=== PATIENT | female | born 1960 | race Caucasian/White ===

== ENCOUNTER 2023-01-24 08:58 | Observation (INO) | payer MEDICARE, MEDICAID, SELFPAY ==
[2023-01-24] VITALS (11 sets, daily range): BP systolic 127–157; BP diastolic 79–95; PULSE 59–77; RESP 13–20; TEMP 36.2–36.9; O2SAT 97–99; BMI 27.4; BMI 24.4
--- NOTE | 2023-01-24 | EEG_ITS ---
This is a 16 channel EEG with an EKG lead. The patient is reported awake during the tracing. Background EEG rhythm is lower amplitude fast with no obvious asymmetry or paroxysmal tendency. Photic stimulation does not produce any significant abnormality. Hyperventilation is not performed. Cardiac lead does not reveal any significant abnormality. No sharp wave spikes or paroxysmal tendency noted. IMPRESSION: Unremarkable EEG. MD JOVAN De Jesus/TOM / [id number]
--- NOTE | 2023-01-24 09:46 | ED.GENADULT ---
HPI - General Adult General Chief complaint: Fall Stated complaint: fall Time Seen by Provider: 01/24/23 09:12 History of Present Illness HPI narrative: Patient is a 62-year-old female presented today with having episodes of syncope. Patient feels dizzy. Mona like a spinning sensation. Subsequently found herself on the ground. She might have passed out for an hour. Patient complaining of pain to the right foot. There is no fever no chills. No chest pain or diaphoresis. No abdominal pain. No bloody stool. No history of being on blood thinners. Positive history of anxiety. Positive history of arthritis. Related Data Allergies Allergy/AdvReac Type Severity Reaction Status Date / Time aspirin [ASPIRIN] Allergy Unknown SOB, Verified 01/24/23 10:56 URINARY RETENTION SEASONAL ALLERGIES Allergy Unknown NAUSEA & Uncoded 04/07/20 15:36 VOMITING, ITCHINESS Review of Systems Review of Systems: No fever no chills no chest pain Yes all other systems are reviewed and are negative PMFSH Past Medical History Attestation statement: The following information was validated with the patient. Social History Social History Smoked in Last 30 Days: No Use of substances other than those prescribed or required for medical reasons: No Advance Directives: No Physical Exam ED Vital Signs: Vital Signs - 24 hr 01/24/23 09:03 01/24/23 09:17 01/24/23 10:23 Temperature 98.1 F 98.3 F Pulse Rate 77 74 71 Respiratory Rate 20 16 Blood Pressure 129/89 127/88 136/90 H Pulse Oximetry 98 98 Oxygen Delivery Method Room Air 01/24/23 10:28 01/24/23 10:29 01/24/23 10:31 Temperature 97.9 F Pulse Rate 67 64 64 Respiratory Rate 14 Blood Pressure 134/79 139/88 134/79 Pulse Oximetry 98 Oxygen Delivery Method Room Air 01/24/23 11:36 01/24/23 13:45 Temperature 97.5 F 97.7 F Pulse Rate 67 66 Respiratory Rate 14 13 Blood Pressure 157/95 H 136/86 Pulse Oximetry 99 99 Oxygen Delivery Method Room Air Room Air BMI result Body Mass Index 27.4 Appearance: Alert. Oriented X3. No acute distress. Eyes: Pupils equal, round and reactive to light. ENT: Pharynx normal. Neck: Normal inspection. Neck supple. No lymph nodes noted. No crepitus CVS: Normal heart rate and rhythm. Pulses normal. Normal S1 and S2 Respiratory: No respiratory distress. Breath sounds normal. No Wheezing. No rales Abdomen: Soft and nontender. No rigidity. No distention. good BS x4 Skin: Skin warm and dry. Normal skin color. Normal skin turgor. Extremities: No lower extremity edema. Neurovascular intact to all extremities. No Lacerations. No Rash Neuro: Oriented X 3. No motor deficit. No sensory deficit. Moving all extermities. No slurred speech Medications Administered Discontinued Medications Generic Name Dose Route Start Last Admin Trade Name Freq PRN Reason Stop Dose Admin Diphtheria/Tetanus/Acell Pertussis 0.5 ml 01/24/23 09:31 01/24/23 10:11 Diphth,Pertus(Acell),Tet Adult 0.5 Ml Syringe IM 01/24/23 09:32 0.5 ml .ONCE ONE Administration Sodium Chloride 1,000 mls @ 999 mls/hr 01/24/23 09:45 01/24/23 10:57 Ns IV 01/24/23 10:45 Infused .Q1H1M MAUREEN Infusion Medical Decision Making Medical Decision Making MDM Narrative: Patient is a 62-year-old female had a syncopal episode last night. Patient was found on the floor question how long she was down on the ground. Has a small lack to the top of her foot. Patient stated that she had syncopal episodes in the past. What is different is that she is not sure how long she has been down. She still feels somewhat dizzy on arrival. She is not orthostatic. CT scan of the head was grossly negative. X-ray of the foot was grossly negative. My interpretation of patient's EKG showed a sinus rhythm heart rate is 70 CA QRS QT within normal limits is no acute ST segment elevation. Patient's chest x-ray showed no focal infiltrate. Her CPK was 66 there is no evidence for rhabdo. Patient tox screen is grossly negative. Given patient's age [age] years old positive syncopal episode for prolonged period of time will admit patient for observation overnight. Case was consulted by the hospitalist team. Differential Diagnosis Differential Diagnoses: The differential diagnosis associated with the presentation includes Syncope, arrhythmia, infection, rhabdo, urinary tract infection Admission/Observation Consideration of admission/observation: Escalation of care including admission/observation considered Consult Healthcare Provider Management of the patient was discussed with: Hospitalist Lab Data MDM Lab Attestation statement: I reviewed the patient's lab results. 01/24/23 09:47 01/24/23 09:47 Labs: Lab Results 01/24/23 01/24/23 01/24/23 Range/Units 09:40 09:47 09:47 WBC 4.3 L (4.8-10.8) X10*3/uL RBC 4.70 (4.20-5.50) X10*6/uL Hgb 14.6 (12.0-16.0) g/dl Hct 43.6 (37.0-47.0) % MCV 92.8 (80.0-98.0) fL MCH 31.1 (27.0-33.0) pg MCHC 33.5 (31.0-35.0) g/dl RDW 12.6 (11.0-16.0) % Plt Count 110 L (160-400) X10*3/uL MPV 12.0 (9.4-12.3) fL Immature Gran % (Auto) 0.2 (0.0-0.4) % Neut % (Auto) 60.2 (45-73) % Lymph % (Auto) 29.5 (20-40) % [place] % (Auto) 6.6 (2-11) % Eos % (Auto) 2.3 (0-4) % Baso % (Auto) 1.2 (0-2) % Lymph # (Auto) 1.3 (1.2-4.9) X10*3/uL [place] # (Auto) 0.3 (0.1-1.2) X10*3/uL Eos # (Auto) 0.1 (0.0-0.4) X10*3/uL Baso # (Auto) 0.1 (0.0-0.2) X10*3/uL Abs Immat Gran (auto) 0.01 (0.00-0.03) X10*3/uL Absolute Neuts (auto) 2.6 (2.0-8.3) x10*3/uL Absolute Nucleated RBC 0.000 (0.0-0.012) X10*3/uL Nucleated RBC % (auto) 0.0 (0.0-0.2) /100WBC Sodium 142 (135-145) mmol/L Potassium 4.2 (3.3-5.1) mmol/L Chloride 109 H (96-108) mmol/L Carbon Dioxide 24 (22-29) mmol/L Anion Gap 13 (12-20) BUN 20 H (9-16) mg/dL Creatinine 0.80 (0.5-1.4) mg/dL Estim Creat Clear Calc 65.0 Estimated GFR > 60 POC Glucose 85 (60-115) mg/dL Random Glucose 90 (60-115) mg/dL Calcium 9.6 (8.4-10.2) mg/dL Magnesium 2.0 (1.6-2.6) mg/dL Total Bilirubin 0.8 (0.0-1.0) mg/dL Direct Bilirubin 0.2 (0.0-0.5) mg/dL AST 19 (5-31) U/L ALT 10 (0-31) U/L Alkaline Phosphatase 53 (39-117) U/L Total Creatine Kinase 66 (26-140) U/L Troponin I High Sens (<3.5-17.0) ng/L Total Protein 6.9 (6.5-8.0) g/dL Albumin 4.1 (3.5-5.0) g/dL Urine Color Urine Appearance Urine pH (5.0-9.0) Ur Specific [place] (1.005-1.025) Urine Protein (Neg-Trace) mg/dL Urine Glucose (UA) (Negative) mg/dL Urine Ketones (Negative) mg/dL Urine Blood (Negative) Urine Nitrite (Negative) Ur Leukocyte Esterase (Negative) Urine RBC (0-2) /HPF Urine WBC (0-5) /HPF Ur Squamous Epith Cells (0-2) /HPF Urine Bacteria (None Seen) Hyaline Casts (0-2) /LPF Urine Opiates Screen (Not Detect) Urine Fentanyl Screen (Not Detect) Ur Barbiturates Screen (Not Detect) Ur Phencyclidine Scrn (Not Detect) Ur Amphetamines Screen (Not Detect) U Benzodiazepines Scrn (Not Detect) Urine Cocaine Screen (Not Detect) U Marijuana (THC) Screen (Not Detect) 01/24/23 01/24/2323 Range/Units 09:47 10:25 10:25 WBC (4.8-10.8) X10*3/uL RBC (4.20-5.50) X10*6/uL Hgb (12.0-16.0) g/dl Hct (37.0-47.0) % MCV (80.0-98.0) fL MCH (27.0-33.0) pg MCHC (31.0-35.0) g/dl RDW (11.0-16.0) % Plt Count (160-400) X10*3/uL MPV (9.4-12.3) fL Immature Gran % (Auto) (0.0-0.4) % Neut % (Auto) (45-73) % Lymph % (Auto) (20-40) % [place] % (Auto) (2-11) % Eos % (Auto) (0-4) % Baso % (Auto) (0-2) % Lymph # (Auto) (1.2-4.9) X10*3/uL [place] # (Auto) (0.1-1.2) X10*3/uL Eos # (Auto) (0.0-0.4) X10*3/uL Baso # (Auto) (0.0-0.2) X10*3/uL Abs Immat Gran (auto) (0.00-0.03) X10*3/uL Absolute Neuts (auto) (2.0-8.3) x10*3/uL Absolute Nucleated RBC (0.0-0.012) X10*3/uL Nucleated RBC % (auto) (0.0-0.2) /100WBC Sodium (135-145) mmol/L Potassium (3.3-5.1) mmol/L Chloride (96-108) mmol/L Carbon Dioxide (22-29) mmol/L Anion Gap (12-20) BUN (9-16) mg/dL Creatinine (0.5-1.4) mg/dL Estim Creat Clear Calc Estimated GFR POC Glucose (60-115) mg/dL Random Glucose (60-115) mg/dL Calcium (8.4-10.2) mg/dL Magnesium (1.6-2.6) mg/dL Total Bilirubin (0.0-1.0) mg/dL Direct Bilirubin (0.0-0.5) mg/dL AST (5-31) U/L ALT (0-31) U/L Alkaline Phosphatase (39-117) U/L Total Creatine Kinase (26-140) U/L Troponin I High Sens < 2.7 (<3.5-17.0) ng/L Total Protein (6.5-8.0) g/dL Albumin (3.5-5.0) g/dL Urine Color Yellow Urine Appearance Clear Urine pH 5.5 (5.0-9.0) Ur Specific [place] 1.020 (1.005-1.025) Urine Protein Negative (Neg-Trace) mg/dL Urine Glucose (UA) Negative (Negative) mg/dL Urine Ketones 15 (Negative) mg/dL Urine Blood Negative (Negative) Urine Nitrite Negative (Negative) Ur Leukocyte Esterase Trace H (Negative) Urine RBC 0-2 (0-2) /HPF Urine WBC 0-5 (0-5) /HPF Ur Squamous Epith Cells 3-5 (0-2) /HPF Urine Bacteria None Seen (None Seen) Hyaline Casts 0-2 (0-2) /LPF Urine Opiates Screen Not Detected (Not Detect) Urine Fentanyl Screen Not Detected (Not Detect) Ur Barbiturates Screen Not Detected (Not Detect) Ur Phencyclidine Scrn Not Detected (Not Detect) Ur Amphetamines Screen Not Detected (Not Detect) U Benzodiazepines Scrn Not Detected (Not Detect) Urine Cocaine Screen Not Detected (Not Detect) U Marijuana (THC) Screen Not Detected (Not Detect) Independent Interpretation I performed an independent interpretation of an: EKG and CT Scan Interpretation: Sinus heart rate is 70 CA QRS QT within normal limits is no acute ST segment elevation noted. CT scan of the head was grossly negative Radiology Impression Discussion of test interpretation with radiology: I have reviewed the radiologist's reading. External Record Review Patient has no significant record at [facility] Discharge Plan Discharge Clinical Impression: Syncope Patient Disposition: Admitted As Inpatient
--- NOTE | 2023-01-24 09:55 | PC.NURSE ---
pt axo to self, poor historian. PERRLA, smile symmetrical, ?slight droop on R. side. bilateral weakness BUE, R. leg weak which pt states has been chronic x years, appears to be fatigued, skin warm and dry; color appropriate to ethnicity. pt reports her shower is on 2nd floor of her house, fell down stairs approx. midnight after feeling dizzy; was on floor overnight, unclear duration. pt has abrasion/pain on top of R. foot; denies other injuries. NSR on monitor, sats 98% on RA, respirations even and unlabored. iv established, labs drawn, fluids infusing. in CT at this time.
--- NOTE | 2023-01-24 11:15 | PC.NURSE ---
Pt is alert but remains confused with some questions asked, unable to recall sons name todays date. Neuros unchanged since arrival. This RN inquired about pts living situation as pt lives alone and actively driving. Pt sons live in [place]
--- NOTE | 2023-01-24 14:40 | PM.IMHP ---
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 presented with fall and report of loss of conciousness. patient has multiple vague complaints, bilateral lower extremity numbness for years, diffuse weakness, episodic dizziness. she reports feeling dizzy and falling downstairs on night ptp, she states she lost concioussness for about 1-2 hours, denies incontinence, reports one previous episode several years ago. in ED cth, labs, ekg unremarkable. Review of Systems Review of Systems: Yes all other systems are reviewed and are negative [facility] Medical History (Updated 01/24/23 @ 14:44 by Salas Amor MD) Hepatitis B Social History Smoked in Last 30 Days: No Use of substances other than those prescribed or required for medical reasons: No Advance Directives: No Meds Allergies Allergy/AdvReac Type Severity Reaction Status Date / Time aspirin [ASPIRIN] Allergy Unknown SOB, Verified 01/24/23 10:56 URINARY RETENTION SEASONAL ALLERGIES Allergy Unknown NAUSEA & Uncoded 04/07/20 15:36 VOMITING, ITCHINESS Active Medications: Current Medications Pharmacy Consult (Consult Rx Perform Med Rec) 1 each MISCELLANE ONCE PRN PRN Reason: Consult order Home Medications Medication Instructions Recorded Confirmed Last Taken Type acetaminophen 325 mg tablet 650 mg PO Q12H PRN Pain 01/24/23 01/24/23 1 Week Ago History (Tylenol) ~01/17/23 fluoxetine 40 mg capsule 40 mg PO DAILY 01/24/23 01/24/23 1 Week Ago History ~01/17/23 Physical Exam Vital Signs and Narrative: Vital Signs: Last Vital Signs Temp 97.7 F 01/24/23 13:45 Pulse 66 01/24/23 13:45 Resp 13 01/24/23 13:45 BP 136/86 01/24/23 13:45 Pulse Ox 99 01/24/23 13:45 O2 Del Method Room Air 01/24/23 13:45 BMI result Body Mass Index 27.4 General: AO X 3, no acute distress Resp: CTA bilateral, no accessory muscles used CVS: S1,S2,RRR GI: soft, non tender, non distended Neuro: unreliable, ?lack of effort on exam Results Labs 01/24/23 09:47 01/24/23 09:47 Labs: Laboratory Results - last 24 hr 01/24/23 01/24/23 01/24/23 09:40 09:47 09:47 MCV 92.8 MCH 31.1 MCHC 33.5 RDW 12.6 Plt Count 110 L MPV 12.0 Immature Gran % (Auto) 0.2 Neut % (Auto) 60.2 Lymph % (Auto) 29.5 [place] % (Auto) 6.6 Eos % (Auto) 2.3 Baso % (Auto) 1.2 Lymph # (Auto) 1.3 [place] # (Auto) 0.3 Eos # (Auto) 0.1 Baso # (Auto) 0.1 Abs Immat Gran (auto) 0.01 Absolute Neuts (auto) 2.6 Absolute Nucleated RBC 0.000 Nucleated RBC % (auto) 0.0 Anion Gap 13 Estim Creat Clear Calc 65.0 Estimated GFR > 60 POC Glucose 85 Random Glucose 90 Calcium 9.6 Magnesium 2.0 Total Bilirubin 0.8 Direct Bilirubin 0.2 AST 19 ALT 10 Alkaline Phosphatase 53 Total Creatine Kinase 66 Troponin I High Sens Total Protein 6.9 Albumin 4.1 Urine Color Urine Appearance Urine pH Ur Specific [place] Urine Protein Urine Glucose (UA) Urine Ketones Urine Blood Urine Nitrite Ur Leukocyte Esterase Urine RBC Urine WBC Ur Squamous Epith Cells Urine Bacteria Hyaline Casts Urine Opiates Screen Urine Fentanyl Screen Ur Barbiturates Screen Ur Phencyclidine Scrn Ur Amphetamines Screen U Benzodiazepines Scrn Urine Cocaine Screen U Marijuana (THC) Screen 01/24/23 01/24/23 01/24/23 09:47 10:25 10:25 MCV MCH MCHC RDW Plt Count MPV Immature Gran % (Auto) Neut % (Auto) Lymph % (Auto) [place] % (Auto) Eos % (Auto) Baso % (Auto) Lymph # (Auto) [place] # (Auto) Eos # (Auto) Baso # (Auto) Abs Immat Gran (auto) Absolute Neuts (auto) Absolute Nucleated RBC Nucleated RBC % (auto) Anion Gap Estim Creat Clear Calc Estimated GFR POC Glucose Random Glucose Calcium Magnesium Total Bilirubin Direct Bilirubin AST ALT Alkaline Phosphatase Total Creatine Kinase Troponin I High Sens < 2.7 Total Protein Albumin Urine Color Yellow Urine Appearance Clear Urine pH 5.5 Ur Specific [place] 1.020 Urine Protein Negative Urine Glucose (UA) Negative Urine Ketones 15 Urine Blood Negative Urine Nitrite Negative Ur Leukocyte Esterase Trace H Urine RBC 0-2 Urine WBC 0-5 Ur Squamous Epith Cells 3-5 Urine Bacteria None Seen Hyaline Casts 0-2 Urine Opiates Screen Not Detected Urine Fentanyl Screen Not Detected Ur Barbiturates Screen Not Detected Ur Phencyclidine Scrn Not Detected Ur Amphetamines Screen Not Detected U Benzodiazepines Scrn Not Detected Urine Cocaine Screen Not Detected U Marijuana (THC) Screen Not Detected Imaging Radiologist's Impressions: Impressions Chest X-Ray 01/24/23 10:04 IMPRESSION: Small calcaneal heel and dorsal midfoot enthesophytes. No visible acute fracture, dislocation or subluxation seen. Foot X-Ray 01/24/23 10:04 IMPRESSION: Small calcaneal heel and dorsal midfoot enthesophytes. No visible acute fracture, dislocation or subluxation seen. Head CT 01/24/23 10:05 IMPRESSION: No acute intracranial process seen. Mild right chronic maxillary sinusitis. Assessment and Plan (1) Syncope: Status: Acute Plan 62F PMH HBV, mood disorder presented with fall/LOC, weakness/numbness fall/LOC, weakness/numbness neuro eval monitor on tele eeg PT HBV check serologies mood disorder dvt prophylaxis - lovenox full code Time Spent With Patient Time: Total time managing care of this patient today ____ minutes. Quality Stroke Does the patient have a stroke diagnosis?: No VTE Prior VTE?: No VTE Risk Level:: Medical - moderate - high VTE Device Contraindication: Treatment Not Indicated VTE Drug Contraindication: N/A - Med Ordered
--- NOTE | 2023-01-24 14:46 | PHA.MEDREC ---
Pharmacy Consult ? Medication Reconciliation Pharmacy has completed the medication reconciliation. Spoke to patient to confirm meds. Patient has bottles of tylenol 650mg and fluoxetine 40mg from 2019 with pills still inside of them. Patient stated that they last took it a week ago, so I included them in the med rec. Patient states they meant to get refills, but throughout the years they were unable to meet with provider for refill.
--- NOTE | 2023-01-24 15:42 | PC.NURSE ---
pt resting quietly in stretcher; requests warm blanket. VSS. pt medicated per SEP. PT at bedside. pt admitted, awaiting bed assignment.
--- NOTE | 2023-01-24 16:25 | PC.NURSE ---
report given to [facility] nurse Mandy.
[2023-01-25] VITALS (8 sets, daily range): BP systolic 112–128; BP diastolic 64–74; PULSE 55–89; RESP 17–20; TEMP 36.3–37.1; O2SAT 95–98
[2023-01-25 05:41] LABS: Hematocrit 39.7 % (37.0-47.0); Hemoglobin 13.1 g/dl (12.0-16.0); Mean Corpuscular Hemoglobin 31.1 pg (27.0-33.0); Mean Corpuscular Volume 94.3 fL (80.0-98.0); Mean Platelet Volume 12.4 fL (9.4-12.3); Platelet Count 98 X10*3/uL (160-400); Red Blood Count 4.21 X10*6/uL (4.20-5.50); Red Cell Distribution Width 12.4 % (11.0-16.0); White Blood Count 3.9 X10*3/uL (4.8-10.8)
[2023-01-25 05:59] LABS: Anion Gap 15 (12-20); Blood Urea Nitrogen 11 mg/dL (9-16); Calcium 9.3 mg/dL (8.4-10.2); Carbon Dioxide 22 mmol/L (22-29); Chloride 109 mmol/L (96-108); Creatinine Clr Calc Pharmacy 70.4; Estimated Glomerular Filt Rate > 60; Glucose Fasting 72 mg/dL (60-99); Potassium 3.6 mmol/L (3.3-5.1); Sodium 142 mmol/L (135-145)
--- NOTE | 2023-01-25 08:31 | MHC.CM.PN ---
CM met with Patient at bedside and addressed VILLARREAL with her, providing Patient wit the original and placing a copy on the chart. Patient lives alone in a condo and uses a cane to assist with mobility. PT is recommending STR and CM has initiated and will follow for dc planning. Patient has received no Coivid vax and her PCP is Dr. Gabriel Kincaid.
[2023-01-25 08:59] LABS: HBS Num1 0.82 mIU/mL (0-7.99); HBc Num1 8.32 S/CO (0.00-0.79); ~HepC Num1 0.05 S/CO (0.00-0.79); ~Hepatitis B Surface Antibody NONREACTIVE (Nonreactive); ~Hepatitis C Antibody Nonreactive (Nonreactive)
--- NOTE | 2023-01-25 10:20 | HO.PM.IMPN ---
Subjective Subjective Date of Service: 01/25/23 Interval History: less weakn, no further syncope Physical Exam Vital Signs: Vital Signs: Last Vital Signs Temp 97.4 F 01/25/23 07:30 Pulse 63 01/25/23 09:56 Resp 20 01/25/23 07:30 BP 120/67 01/25/23 09:56 Pulse Ox 96 01/25/23 09:56 O2 Del Method Room Air 01/25/23 07:30 BMI result Body Mass Index 24.4 General: AO X 3, no acute distress Resp: CTA bilateral, no accessory muscles used CVS: S1,S2,RRR GI: soft, non tender, non distended Neuro: less weakness noted, unreliable exam Psych: flat affect Objective Data Active Medications Enoxaparin Sodium (Enoxaparin Sodium 40 Mg/0.4 Ml Syringe) 40 mg SUBCUT Q24H [facility] Last Admin: 01/24/23 15:36 Dose: 40 mg Documented By: ANNA MARIE Fluoxetine HCl (Fluoxetine Hcl 20 Mg Capsule) 40 mg PO DAILY [facility] Last Admin: 01/25/23 09:11 Dose: 40 mg Documented By: ALEXANDRA Pharmacy Consult (Consult Rx Perform Med Rec) 1 each MISCELLANE ONCE PRN PRN Reason: Consult order Sodium Chloride (0.9 % Sodium Chloride Flush 3 Ml Syringe) 3 ml IVFLUSH QSHIFT [facility] Last Admin: 01/25/23 09:11 Dose: 3 ml Documented By: ALEXANDRA Labs 01/25/23 05:16 01/25/23 05:16 Labs: Laboratory Results - last 24 hr 01/24/23 01/24/23 01/25/23 10:25 10:25 05:16 MCV 94.3 MCH 31.1 MCHC 33.0 RDW 12.4 Plt Count 98 L MPV 12.4 H Absolute Nucleated RBC 0.000 Nucleated RBC % (auto) 0.0 Anion Gap Estim Creat Clear Calc Estimated GFR Fasting Glucose Calcium Urine Color Yellow Urine Appearance Clear Urine pH 5.5 Ur Specific [place] 1.020 Urine Protein Negative Urine Glucose (UA) Negative Urine Ketones 15 Urine Blood Negative Urine Nitrite Negative Ur Leukocyte Esterase Trace H Urine RBC 0-2 Urine WBC 0-5 Ur Squamous Epith Cells 3-5 Urine Bacteria None Seen Hyaline Casts 0-2 Urine Opiates Screen Not Detected Urine Fentanyl Screen Not Detected Ur Barbiturates Screen Not Detected Ur Phencyclidine Scrn Not Detected Ur Amphetamines Screen Not Detected U Benzodiazepines Scrn Not Detected Urine Cocaine Screen Not Detected U Marijuana (THC) Screen Not Detected Hep Bs Antigen Hep Bs Antibody Hepatitis C Ab (EIA) 01/25/23 01/25/23 05:16 05:16 MCV MCH MCHC RDW Plt Count MPV Absolute Nucleated RBC Nucleated RBC % (auto) Anion Gap 15 Estim Creat Clear Calc 70.4 Estimated GFR > 60 Fasting Glucose 72 Calcium 9.3 Urine Color Urine Appearance Urine pH Ur Specific [place] Urine Protein Urine Glucose (UA) Urine Ketones Urine Blood Urine Nitrite Ur Leukocyte Esterase Urine RBC Urine WBC Ur Squamous Epith Cells Urine Bacteria Hyaline Casts Urine Opiates Screen Urine Fentanyl Screen Ur Barbiturates Screen Ur Phencyclidine Scrn Ur Amphetamines Screen U Benzodiazepines Scrn Urine Cocaine Screen U Marijuana (THC) Screen Hep Bs Antigen Not Reportable Hep Bs Antibody NONREACTIVE Hepatitis C Ab (EIA) Nonreactive Assessment and Plan (1) Syncope: Status: Acute Plan 62F PMH HBV, mood disorder presented with fall/LOC, weakness/numbness fall/LOC, weakness/numbness neuro eval monitor on tele eeg PT recommending str HBV follow up serologies mood disorder fluoexitine dvt prophylaxis - lovenox full code reason for continued hospitalization:awaiting neuro eval, safe dispo Time Spent With Patient Time: Total time managing care of this patient today ____ minutes. Quality Stroke Does the patient have a stroke diagnosis?: No VTE Prior VTE?: No VTE Risk Level:: Medical - moderate - high VTE Device Contraindication: Treatment Not Indicated VTE Drug Contraindication: N/A - Med Ordered
--- NOTE | 2023-01-25 12:09 | MHC.CM.PN ---
CM met with Patient regarding PT's recommendation for STR and explained that one SNF ([facility]) has offered her a bed. Patient states that she wants to go home with new VNA and CM relayed this message to MD and PT. Per MD, we are waiting on Neuro but a dc to home with vna is, fine. A referral has been made to [facility] and CM will continue to follow.
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
--- NOTE | 2023-01-25 12:52 | MHC.CM.PN ---
Per [facility], Patient is not eligible for VNA services at this time r/t her first appointment with her NEW PCP/Dr. Kincaid not being until 03/21/2023 and PCP would not write orders for vna services until after the initial appointment. JAMES has made aware.
--- NOTE | 2023-01-25 18:37 | PC.NURSE ---
Patient A&OX4 flat affect speech quiet soft spoken. Denies headache, dizziness or vision changes. c/o numbness to right side of body and mild pain to right hip. Lungs clear denies shortness of breath or chest pain, NSR on tele. BS+X4 abdomen soft non-tender denies nausea/vomiting tolerating diet. OOB with walker slow gait but steady with stand by assist. Off unit in afternoon for EEG and MRI. Will continue to monitor and report changes
[2023-01-26 03:22] VITALS: BP 137/71; PULSE 52; RESP 17; TEMP 36.6; O2SAT 96
[2023-01-26 07:34] VITALS: BP 118/73; PULSE 59; RESP 18; TEMP 36.7; O2SAT 97
--- NOTE | 2023-01-26 08:46 | W.MHC.F2F ---
Service Date Service Date: 01/26/23 Encounter Date of encounter: 01/26/23 Reasons for Services Signs and symptoms assessed: weakness Reason for physical therapy: home safety and mobility, therapeutic exercises and restore joint function Homebound: Leaving the home is medically contraindicated at this time without the asist of a device and/or another person due th the listed conditions above and below. Reason homebound: unsteady gait / fall risk Certification: Based on the above findings, I certify that this patient is confined to the home and needs intermittent fci care, physical therapy and/or speech therapy, or continues to need occupational therapy. The patient is under my care, and I have initiated the establishment of the plan of care. The patient will be followed by a physician who will periodically review the plan of care. Time Spent With Patient Time: Total time managing care of this patient today ____ minutes.
--- NOTE | 2023-01-26 08:47 | PM.DS ---
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 presented with fall and report of loss of conciousness. patient has multiple vague complaints, bilateral lower extremity numbness for years, diffuse weakness, episodic dizziness. she reports feeling dizzy and falling downstairs on night ptp, she states she lost concioussness for about 1-2 hours, denies incontinence, reports one previous episode several years ago. in ED cth, labs, ekg unremarkable. hopsital course: Patient was admitted for fall, question of loss of consciousness, complaints of weakness and numbness. MRI was done which was unremarkable. No events on telemetry. She was seen by physical therapy recommended short-term rehab, however patient has opted for home PT. she will follow up outpatient with Neurology. For history of hepatitis-B, confirmatory serologies were drawn and should be followed up outpatient. For mood disorder she was continue fluoxetine. Patient is feeling better will be discharged home. Time Spent with Patient Time attestation: Total time managing care of this patient today ____ minutes. Discharge coordination time: Greater than 30 minutes Quality: Safe Use of Opioids Does Pt have an Active Cancer Diagnosis on the Problem List?: No Quality: Stroke Does the patient have a stroke diagnosis?: No Physical Exam Vital Signs: Vital Signs: Last Vital Signs Temp 98.1 F 01/26/23 07:34 Pulse 59 01/26/23 07:34 Resp 18 01/26/23 07:34 BP 118/73 01/26/23 07:34 Pulse Ox 97 01/26/23 07:34 O2 Del Method Room Air 01/26/23 07:34 BMI result Body Mass Index 24.4 General: AO X 3, no acute distress Resp: CTA bilateral, no accessory muscles used CVS: S1,S2,RRR GI: soft, non tender, non distended Neuro: motor grossly intact, alert Psych: appropriate affect, appropriate insight DS: Data Data Completed and Pending Labs on day of discharge: Laboratory Results - last 24 hr 01/25/23 05:16 Hep Bs Antigen Not Reportable Hep Bs Antibody NONREACTIVE Hepatitis C Ab (EIA) Nonreactive Discharge Plan Discharge Anticipated Discharge Date/Time: 01/26/23 08:45 Patient Disposition: Home Health Service Discharge Diagnosis: weakness Referrals: Prasanth Trevino MD [Physician] - 1 Week Physician,Unknown J [Primary Care Provider] - 1 Week Discharge Medications: Continued fluoxetine 40 mg Capsule 40 mg PO DAILY acetaminophen [Tylenol] 325 mg Tablet 650 mg PO Q12H PRN (Reason: Pain) Discharge Orders: Discharge Order (Routine); Ordered 01/26/23 Ordered By: Salas Amor Diet: Advance to usual diet Activity on Discharge: As tolerated Stand Alone Forms: Patient Portal Discharge page Care Plan Goals: recovery Health Concerns: weakness Plan of Treatment: follow up eeg with neuro as outpatient, home pt Assessment: see above
--- NOTE | 2023-01-26 09:10 | MHC.CM.PN ---
PT WILL DC HOME WITH NO SERVICES JAMES ATTEMPTED TO ARRANGE VNA FOR HOME PT, HOWEVER PT IS NOT ACTIVE WITH A PCP SHE HAS A NEW PT APPT SCHEDULED FOR 02/19/23, IF SERVICES WOULD STILL BE BENEFICIAL AT THAT TIME, HER PCP MAY ARRANGE PT WILL DRIVE HERSELF HOME
[2023-01-26 11:25] VITALS: BP 126/71; PULSE 65; RESP 18; TEMP 36.3; O2SAT 96
[2023-01-27 10:07] LABS: HBc Num2 8.18 S/CO; HBc Num3 8.41 S/CO; Hepatitis B Core Antibody Reactive (Nonreactive)
[2023-01-27 10:16] LABS: Hepatitis B Surface Antigen Retest CNFM (Negative)
[2023-01-29 21:19] LABS: Hepatitis B Core Antibody IgM NON-REACTIVE (NON-REACTIVE)
== END 2023-01-26 12:17 | disposition home health service (06) ==
LOC: HO.ED 14:18 → HO.EDOVER 14:52 → HO.IMC 16:11
PROVIDERS: Admitting Provider Internal Medicine; Emergency Provider Emergency Medicine Emergency Medical Services; PCP Internal Medicine; Visit Provider Internal Medicine
DX: R55 Syncope and collapse (principal); S91.311A Laceration without foreign body, right foot, initial encounter; W17.89XA Other fall from one level to another, initial encounter; M79.671 Pain in right foot; F41.9 Anxiety disorder, unspecified; Z79.899 Other long term (current) drug therapy; Y93.9 Activity, unspecified; Y92.039 Unspecified place in apartment as the place of occurrence of the external cause; Y99.9 Unspecified external cause status
CPT/HCPCS: 36415; 70450; 70551; 71045; 73620; 80048; 80076; 80307; 81001; 82550; 82947; 83735; 84484; 85025; 85027; 86704; 86705; 86706; 86803; 87340; 90471; 90715; 93005; 95816; 96360; 96372; 97116; 97162; 99222; 99285; J1650

== ENCOUNTER 2023-12-05 13:28 | Outpatient (REF) | payer MEDICARE, MEDICAID, SELFPAY ==
[2023-12-05 14:42] LABS: Anion Gap 11 (12-20); Blood Urea Nitrogen 13 mg/dL (9-16); Calcium 9.4 mg/dL (8.4-10.2); Carbon Dioxide 27 mmol/L (22-29); Chloride 109 mmol/L (96-108); Estimated Glomerular Filt Rate > 60; Glucose Random 90 mg/dL (60-115); Sodium 143 mmol/L (135-145)
[2023-12-05 15:12] LABS: Erythrocyte Sedimentation Rate 8 MM/HR (0-20)
[2023-12-06 12:27] LABS: Lyme Abs Screen <0.90 index
[2023-12-13 13:58] LABS: Anti Nuclear Antibody Screen POSITIVE (NEGATIVE)
== END 2023-12-05 13:29 | disposition home or self-care (01) ==
LOC: HO.LAB 13:28
PROVIDERS: Visit Provider Psychiatry & Neurology Neurology
DX: M79.7 Fibromyalgia (principal)
CPT/HCPCS: 36415; 80048; 85652; 86038; 86039; 86617; 86618

== ENCOUNTER 2024-03-05 13:51 | Outpatient (REF) | payer MEDICARE, MEDICAID, SELFPAY ==
[2024-03-15 15:04] LABS: DNAds, Crithidia Antibody Negative (Negative)
== END 2024-03-05 13:52 | disposition home or self-care (01) ==
LOC: HO.LAB 13:51
PROVIDERS: PCP Internal Medicine; Visit Provider Registered Nurse
DX: M79.7 Fibromyalgia (principal)
CPT/HCPCS: 36415; 86255

== ENCOUNTER 2024-03-17 15:34 | Outpatient (AMB) | payer MEDICARE, MEDICAID, SELFPAY ==
[2024-03-17 15:35] VITALS: BP 124/78; PULSE 79; O2SAT 96; BMI 26.0
--- NOTE | 2024-03-17 15:35 | A.OFFPC_ITS ---
Vital Signs 03/17/24 15:35 Height 5 ft 2 in Weight 142 lb BMI 26.0 BP 124/78 Blood Pressure Location Lt brachial Position Sitting Pulse 79 Pulse Source Pulse Oximeter Pulse Oximetry (%) 96 Oxygen Delivery Method Room Air Intake Visit Reasons: Re-establish care/ previous pcp Sanjiv Print Production Coordinator Required: No Accompanied by: Self / Same As Patient Allergies aspirin [ASPIRIN] Allergy (Unknown, Verified 03/17/24 15:49) SOB, URINARY RETENTION SEASONAL ALLERGIES Allergy (Unknown, Uncoded 03/17/24 15:49) NAUSEA & VOMITING, ITCHINESS Medication List - Last Reconciled 03/17/24 by Barbara Stock PA-C duloxetine 30 mg PO BID Tobacco use date assessed: 03/17/24 Fall risk assessment: 2 + Falls in past year Last assessed Fall Risk: 03/17/24 Dental Screening Dental Screen Date: 03/17/24 Did you have a dental visit in the last 12 months?: No Did you have a dental problem in the last 6 months where you did not have access to dental care?: No HPI Re-establish care/ previous pcp Sanjiv HPI Details 63-year-old female with no documented pa medical history coming to the office for the 1st time. Patient was seen several years ago by Dr. Kincaid. Patient states she has been having bilateral knee pain with radiating pain, numbness and tingling to the ankles and feet. This has been present for several years now. She also mentioned she has been having blurred vision and her vision has been worsening. She was previously using otko-pks-xxsnmus lenses and is now in the highest strength. She also mentioned she has been having worsening memory and does follow up with Neurology for this concern. Lastly mentions she has been unable to sleep for several years and is often awake throughout the night and sleeps during the day. [facility] Medical History (Updated 03/17/24 @ 16:05 by Barbara Stock PA-C) Hepatitis B Surgical History (Updated 03/17/24 @ 15:52 by Barbara Stock PA-C) H/O abdominoplasty H/O lumpectomy Family History (Updated 03/17/24 @ 15:53 by Barbara Stock PA-C) Brother Colon cancer Brother Colon cancer Father Stomach cancer Mother Stomach cancer Social History Household Members: None Housing: Condominium Do you presently have visiting nurse or other home services: No Patient Tobacco Use Status: Never used Tobacco Tobacco use type: Cigarette e-Cigarette/Vaping Use: Never Used service: No Current occupational status: disabled Cognitive needs: No Hearing needs: No Vision needs: Yes Questionnaire PHQ-9 Over the last 2 weeks, how often have you been bothered by any of the following problems? 1. Little interest or pleasure in doing things: not at all 2. Feeling down, depressed, or hopeless: not at all 3. Trouble falling or staying asleep, or sleeping too much: more than half the days 4. Feeling tired or having little energy: not at all 5. Poor appetite or overeating: not at all 6. Feeling bad about yourself - or that you are a failure or have let yourself or your family down: not at all 7. Trouble concentrating on things, such as reading the newspaper or watching television: not at all 8. Moving or speaking so slowly that other people could have noticed. Or the opposite - being so fidgety or restless that you have been moving around a lot more than usual: not at all 9. Thoughts that you would be better off or of hurting yourself in some way: not at all Total score: 2 Depression Screening Interpretation: Negative Depression Screening Done: Yes 45190 - PHQ-9 Billing: Yes Source: Developed by Drs. Hola Gary, Karoline Malagon, Shad Wells and colleagues, with an educational sheryl from [employer]. Thrive Questionnaire Date Thrive assessed: 03/17/24 I am a: Patient What is your living situation today?: I have a steady place to live Within the past 12 months, did the food you bought not last and you didn't have the money to get more?: Never true Within the past 12 months, did you worry whether your food would run out before you got money to buy more?: Never true THRIVE Score: 0 AUDIT C Alcohol Use Questionnaire (AUDIT-C) 1. How often do you have a drink containing alcohol?: Monthly or less 2. How many drinks containing alcohol do you have on a typical day when you are drinking?: 1 or 2 3. How often do you have six or more drinks on one occasion?: Never Total Score: 1 KATELYN-7 AMB Questionnaire KATELYN-7 Date KATELYN - 7 assessed: 03/17/24 Feeling nervous, anxious, or on edge: 1 = Several days Not being able to stop or control worryin = Several days Worrying too much about different things: 1 = Several days Trouble relaxin = Not at all Being so restless that it is hard to sit still: 1 = Several days Becoming easily annoyed or irritable: 0 = Not at all Feeling afraid as if something awful might happen: 0 = Not at all Total KATELYN-7 score (0-4 normal; 5-9 mild; 10-14 moderate; 15-21 severe): 4 Source: Developed by Drs. Hola Gary, Karoline Malagon, Shad Wells and colleagues, with an educational sheryl from [employer]. KATELYN-7 Assessment Billing KATELYN-7 Assessment Tool: KATELYN-7 Assessment 47844 Review of Systems Const Denies body aches, Denies fatigue, Denies fever(s), Denies frequent falls, Denies headache(s) and Denies weakness Eyes Reports blurry vision ENT Denies dysphagia, Reports dizziness (with sitting to standing ), Denies facial pain, Denies headache(s), Denies nasal congestion and Denies odynophagia Card Denies chest pain, Denies syncope, Denies irregular heart rhythm, Denies leg edema, Denies lightheadedness and Denies dyspnea Resp Denies cough and Denies dyspnea GI Denies abdominal pain, Reports constipation, Denies dysphagia, Denies dyspepsia, Denies diarrhea, Denies nausea, Denies odynophagia and Denies vomiting Denies urinary frequency, Denies dysuria, Denies urinary hesitancy and Denies urinary urgency Musc Details: bilateral knee pain Denies back pain and Denies myalgias Skin/Breast Reports system reviewed and no additional complaints, except as documented Neuro Reports dizziness (with sitting to standing ), Denies syncope, Denies frequent falls, Denies headache(s) and Denies weakness Psych Reports no additional complaints Endo Denies fatigue Physical exam (Primary Care) Vital Signs: Last Vital Signs Pulse 79 03/17/24 15:35 BP 124/78 03/17/24 15:35 Pulse Ox 96 03/17/24 15:35 Oxygen Delivery Method Room Air 03/17/24 15:35 BMI result Body Mass Index 26.0 Tobacco/Smoking Status: Tobacco use Status Tobacco use date assessed 03/17/24 03/17/24 15:43 Patient Tobacco Use Status Never used Tobacco 03/17/24 15:43 Tobacco use type Cigarette 03/17/24 15:43 e-Cigarette/Vaping Use Never Used 03/17/24 15:43 PHQ-9: PHQ-9 Score PHQ-9: Total score 2 03/17/24 15:55 Depression Screening Interpretation: Negative Thrive Assessment: Date of Thrive Assessment Date Thrive assessed 03/17/24 03/17/24 15:43 Const General: cooperative, healthy appearing, comfortable and no acute distress Orientation/consciousness: patient oriented x3 HENMT Head: Yes normocephalic Ears: hearing grossly normal bilaterally General nose exam: Normal external nose present Eyes General: appearance normal, both eyes and all related structures Conjunctivae: conjunctivae normal Neck Neck: Yes full ROM and Yes no lymphadenopathy Resp Effort & Inspection: normal respiratory effort Auscultation: clear to auscultation bilaterally, no crackles, no rales, no rhonchi and no wheezes Cardio Rate: regular rate Rhythm: regular rhythm Skin General skin exam: no rashes or lesions noted Neuro General: patient oriented x3 Gait exam (Neuro): Normal gait present Extrem Other: pain to palpation of bilateral knees. Pulses, strength and sensation intact in bilateral lower extremities. General: Yes normal to inspection, Yes full ROM and No edema Psych Affect: normal affect Attitude: cooperative Insight: Good insight present (Psych) Judgement: Good judgement present (Psych) Assessment and Plan Assessment & Plan (1) Blurred vision: Code(s): H53.8 - Other visual disturbances Plan: Referral to optometry placed. (2) Insomnia: Code(s): G47.00 - Insomnia, unspecified Plan: referral to outpatient psych clinic for insomnia and anxiety. Patient is unsure about medical management at this time but would like to talk about possible options for co-treating with anxiety. (3) Anxiety: Code(s): F41.9 - Anxiety disorder, unspecified Plan: Referral placed to outpatient psych clinic. (4) Knee pain: Code(s): M25.569 - Pain in unspecified knee Plan: bilateral knee pain that radiates to the ankles and feet that has not been evaluated in the past. Ordered for bilateral knee XR for further evaluation. (5) Memory impairment: Code(s): R41.3 - Other amnesia Plan: Patient states she sometimes has difficulty remembering simple things and has poor short term memory. She also mentions she sometimes forgets to do basic things like swallow while she is eating and drinking and getting to the bathroom. Previous brain MRI from 2022 was normal. She does follow with Neurology and was last seen a few months ago. We will request these records and re-evaluate treatment options at that time. Patient would benefit from VNA as she has impaired ability to care for herself and sometimes has difficulty with basic hygiene. Plan Ordered for routine blood work we will follow up in 2 months for annual exam. This note was constructed using voice recognition software. While every effort has been made to ensure accuracy and movie machine operator, still areas may have been included sometimes these areas may affect the content or meeting of the given symptoms. Total time spent caring for the patient today was 30 minutes. This includes time spent before the visit reviewing the chart, time spent during the visit, and time spent after the visit and documentation. Orders: Orders XR knee RT 2V Today M25.569 - Pain in unspecified knee Complete Blood Count Auto Diff Today Z00.00 - Encounter for general adult medical examination without abnormal findings Free T4 (Free Thyroxine) Today Z00.00 - Encounter for general adult medical examination without abnormal findings Lipid Panel Today Z00.00 - Encounter for general adult medical examination without abnormal findings XR knee LT 2V Today M25.569 - Pain in unspecified knee Comprehensive Met. Panel Today Z00.00 - Encounter for general adult medical examination without abnormal findings TSH reflex Free T4 Today Z00.00 - Encounter for general adult medical examination without abnormal findings Vitamin B12 and Folate Today Z00.00 - Encounter for general adult medical examination without abnormal findings Vitamin D 25-OH (D2 and D3) Today Z00.00 - Encounter for general adult medical examination without abnormal findings Referrals Optometry Referral H53.8 - Other visual disturbances Psychiatry Outpatient Consultation Service F41.9 - Anxiety disorder, unspecified, G47.00 - Insomnia, unspecified [facility] Referral R41.3 - Other amnesia Coding Level of Care Code New Pt Level 4 (89231) Diagnoses Blurred vision H53.8 Insomnia G47.00 Anxiety F41.9 Knee pain M25.569 Memory impairment R41.3 Additional Codes KATELYN-7 Assessment Billing - KATELYN-7 Assessment Tool: KATELYN-7 Assessment 12035 ([id number])
== END 2024-03-17 16:16 | disposition home or self-care (01) ==
DX: H53.8 Other visual disturbances (principal); G47.00 Insomnia, unspecified; F41.9 Anxiety disorder, unspecified; M25.561 Pain in right knee; M25.562 Pain in left knee; R41.3 Other amnesia
CPT/HCPCS: 99203

== ENCOUNTER 2024-03-17 16:26 | Outpatient (REF) | payer MEDICARE, MEDICAID, SELFPAY ==
--- NOTE | ~2024-03-17 | XR_ITS ---
EXAMINATION: Bilateral knee series CLINICAL INFORMATION: Pain in the knees COMPARISON: X-rays of the right knee February 2016. TECHNIQUE: 2 views of each knee FINDINGS: Right knee: The bones and joints are normal. No effusion. No degenerative changes. Left knee: The bone and joints are normal. No effusion. No degenerative change. XR/XR knee RT 2V IMPRESSION: RIGHT KNEE: Normal. LEFT KNEE: Normal. Electronically signed by: Justen Montiel MD 04/07/2024 07:36 AM EDT
--- NOTE | ~2024-03-17 | XR_ITS ---
EXAMINATION: Bilateral knee series CLINICAL INFORMATION: Pain in the knees COMPARISON: X-rays of the right knee February 2016. TECHNIQUE: 2 views of each knee FINDINGS: Right knee: The bones and joints are normal. No effusion. No degenerative changes. Left knee: The bone and joints are normal. No effusion. No degenerative change. XR/XR knee LT 2V IMPRESSION: RIGHT KNEE: Normal. LEFT KNEE: Normal. Electronically signed by: Justen Montiel MD 04/07/2024 07:36 AM EDT
== END 2024-03-17 16:27 | disposition home or self-care (01) ==
LOC: HO.XRAY 16:26
DX: M25.562 Pain in left knee (principal); M25.561 Pain in right knee
CPT/HCPCS: 73560

== ENCOUNTER 2024-03-18 07:37 | Outpatient (REF) | payer MEDICARE, MEDICAID, SELFPAY ==
[2024-03-18 07:58] LABS: MANUAL DIFF FLAG NO
[2024-03-18 08:43] LABS: Basophils Absolute Auto 0.1 X10*3/uL (0.0-0.2); Eosinophils Absolute Auto 0.2 X10*3/uL (0.0-0.4); Eosinophils Percent Auto 3.1 % (0-4); Hematocrit 45.7 % (37.0-47.0); Hemoglobin 15.1 g/dl (12.0-16.0); Imm Gran Abs Auto 0.02 X10*3/uL (0.00-0.03); Imm Gran Pct Auto 0.4 % (0.0-0.4); Lymphocytes Absolute Auto 1.4 X10*3/uL (1.2-4.9); Mean Corpuscular Hemoglobin 31.2 pg (27.0-33.0); Mean Corpuscular Volume 94.4 fL (80.0-98.0); Monocytes Absolute Auto 0.3 X10*3/uL (0.1-1.2); Monocytes Percent Auto 5.2 % (2-11); Neutrophils Absolute Auto 3.3 x10*3/uL (2.0-8.3); Neutrophils Percent Auto 63.3 % (45-73); Platelet Count 150 X10*3/uL (160-400); Red Blood Count 4.84 X10*6/uL (4.20-5.50); Red Cell Distribution Width 12.8 % (11.0-16.0); White Blood Count 5.2 X10*3/uL (4.8-10.8)
[2024-03-18 09:15] LABS: Alanine Aminotransferase 18 U/L (0-31); Albumin Level 4.3 g/dL (3.5-5.0); Alkaline Phosphatase 73 U/L (39-117); Anion Gap 8 (12-20); Aspartate Amino Transferase 22 U/L (5-31); Bilirubin Total 0.3 mg/dL (0.0-1.0); Blood Urea Nitrogen 16 mg/dL (9-16); Calcium 9.3 mg/dL (8.4-10.2); Carbon Dioxide 29 mmol/L (22-29); Chloride 108 mmol/L (96-108); Cholesterol 268 mg/dL (<200); Estimated Glomerular Filt Rate > 60; Glucose Random 89 mg/dL (60-115); HDL Cholesterol 64 mg/dL (>40); LDL Cholesterol Calculated 175 mg/dL (<100); Potassium 4.4 mmol/L (3.3-5.1); Sodium 141 mmol/L (135-145); Total Protein 7.1 g/dL (6.5-8.0); Triglycerides 145 mg/dL (<150)
[2024-03-18 09:34] LABS: Free T4 (Free Thyroxine) 0.85 ng/dL (0.71-1.85); TSH reflex Free T4 3.97 uIU/mL (0.32-4.0)
[2024-03-18 09:46] LABS: Folate 9.1 ng/mL (> or = 4.0); Vitamin B12 590 pg/mL (200-900)
[2024-03-23 15:08] LABS: Vitamin D 25-OH, D2 <4 ng/mL; Vitamin D 25-OH, D3 7 ng/mL; Vitamin D 25-OH, Total 7 ng/mL (30-100)
== END 2024-03-18 07:38 | disposition home or self-care (01) ==
LOC: HO.LAB 07:37
DX: Z00.00 Encounter for general adult medical examination without abnormal findings (principal)
CPT/HCPCS: 36415; 80053; 80061; 82306; 82607; 82746; 84439; 84443; 85025

== ENCOUNTER 2024-05-29 14:14 | Outpatient (REF) | payer MEDICARE, MEDICAID, SELFPAY ==
[2024-05-29 16:14] LABS: Appearance Urine Clear; Color Urine Yellow; Glucose Urine UA Negative (Negative); Leukocyte Esterase Urine Negative (Negative); Nitrite Urine Negative (Negative); PH >= 9.0 (5.0-9.0); Urine Blood Negative (Negative); Urine Ketones Negative (Negative); Urine Protein Negative (Neg-Trace)
== END 2024-05-29 14:15 | disposition home or self-care (01) ==
LOC: HO.LNP 14:14
DX: R35.89 Other polyuria (principal)
CPT/HCPCS: 81003; 96127; 99212; 99396

== ENCOUNTER 2024-05-29 14:14 | Outpatient (AMB) | payer MEDICARE, MEDICAID, SELFPAY ==
[2024-05-29 14:25] VITALS: BP 112/78; PULSE 76; O2SAT 94; BMI 25.8
--- NOTE | 2024-05-29 14:25 | MHC.PC.OV ---
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 Allergies aspirin [ASPIRIN] Allergy (Unknown, Verified 05/29/24 15:10) SOB, URINARY RETENTION SEASONAL ALLERGIES Allergy (Unknown, Uncoded 05/29/24 15:10) NAUSEA & VOMITING, ITCHINESS Medication List - Last Reconciled 05/29/24 by Barbara Stock PA-C duloxetine 30 mg PO BID Tobacco use date assessed: 05/29/24 Fall risk assessment: No Falls in past year Last assessed Fall Risk: 05/29/24 Dental Screening Dental Screen Date: 03/17/24 Did you have a dental visit in the last 12 months?: No Did you have a dental problem in the last 6 months where you did not have access to dental care?: No Was dental information given to patient?: No HPI PE HPI Details 63-year-old female with past medical history of anxiety, insomnia, cognitive impairment last seen February 2024 coming in for annual exam. In review of the notes, patient was seen by Neurology 03/20/2024 advised to continue on duloxetine for treatment of fibromyalgia. Patient states she will occasionally have a room spinning sensation mainly when she is tired and lying flat in bed. She has had this ongoing for several years and has never been treated. She was seen by Neurology for this concern and is unsure of the treatment plan. She also mentions having several choking episodes 2-3 times per week while eating. She is refusing a Pap smear. [facility] Medical History Hepatitis B Surgical History H/O abdominoplasty H/O lumpectomy Family History Brother Colon cancer Brother Colon cancer Father Stomach cancer Mother Stomach cancer Social History Household Members: None Housing: Condominium Do you presently have visiting nurse or other home services: No Patient Tobacco Use Status: Never used Tobacco Tobacco use type: Cigarette e-Cigarette/Vaping Use: Never Used service: No Current occupational status: disabled Cognitive needs: No Hearing needs: No Vision needs: Yes Questionnaire PHQ-9 Over the last 2 weeks, how often have you been bothered by any of the following problems? 1. Little interest or pleasure in doing things: not at all 2. Feeling down, depressed, or hopeless: not at all 3. Trouble falling or staying asleep, or sleeping too much: more than half the days 4. Feeling tired or having little energy: not at all 5. Poor appetite or overeating: not at all 6. Feeling bad about yourself - or that you are a failure or have let yourself or your family down: not at all 7. Trouble concentrating on things, such as reading the newspaper or watching television: not at all 8. Moving or speaking so slowly that other people could have noticed. Or the opposite - being so fidgety or restless that you have been moving around a lot more than usual: not at all 9. Thoughts that you would be better off or of hurting yourself in some way: not at all Total score: 2 Depression Screening Interpretation: Positive (Referral placed to outpatient psychiatry) Depression Screening Follow-up: Existing condition Depression Screening Done: Yes 90135 - PHQ-9 Billing: Yes Source: Developed by Drs. Hola Gary, Karoline Malagon, Shad Wells and colleagues, with an educational sheryl from [employer]. Thrive Questionnaire Date Thrive assessed: 03/17/24 I am a: Patient What is your living situation today?: I have a steady place to live Within the past 12 months, did the food you bought not last and you didn't have the money to get more?: I choose not to answer this question Within the past 12 months, did you worry whether your food would run out before you got money to buy more?: I choose not to answer this question Do you have trouble paying for medicines?: I choose not to answer this question Do you have trouble getting transportation to medical appointments?: I choose not to answer this question Do you have trouble paying your heating and electricity bill?: I choose not to answer this question Do you have trouble taking care of your child, family member or friend?: I choose not to answer this question Do you have trouble with day-to-day activities such as bathing, preparing meals, shopping, managing finances, etc.?: I choose not to answer this question Are you currently unemployed and looking for a job?: I choose not to answer this question Are you interested in more education?: I choose not to answer this question Please select the resources that you would like help with: None Currently or been in a relationship where the following occur: I choose not to answer THRIVE Score: 0 AUDIT C Alcohol Use Questionnaire (AUDIT-C) 1. How often do you have a drink containing alcohol?: Never 3. How often do you have six or more drinks on one occasion?: Never Total Score: 0 KATELYN-7 AMB Questionnaire KATELYN-7 Date KATELYN - 7 assessed: 05/29/24 Feeling nervous, anxious, or on edge: 0 = Not at all Not being able to stop or control worryin = Not at all Worrying too much about different things: 0 = Not at all Trouble relaxin = Not at all Being so restless that it is hard to sit still: 0 = Not at all Becoming easily annoyed or irritable: 0 = Not at all Feeling afraid as if something awful might happen: 0 = Not at all Total KATELYN-7 score (0-4 normal; 5-9 mild; 10-14 moderate; 15-21 severe): 0 Source: Developed by Drs. Hola Gary, Karoline Malagon, Shad Wells and colleagues, with an educational sheryl from [employer]. KATELYN-7 Assessment Billing KATELYN-7 Assessment Tool: KATELYN-7 Assessment 20327 Review of Systems Const Denies body aches, Denies fatigue, Denies fever(s), Denies frequent falls, Reports headache(s) (occasional migraine) and Denies weakness Eyes Details: recently seen by eye doctor Reports no additional complaints and Reports requires corrective lenses ENT Details: SOB with anxiety. decreased hearing Reports dysphagia, Reports dizziness, Denies facial pain, Reports headache(s) (occasional migraine), Denies nasal congestion and Denies odynophagia Card Denies chest pain, Denies syncope, Denies irregular heart rhythm, Denies leg edema, Denies lightheadedness and Denies dyspnea Resp Denies cough and Denies dyspnea GI Reports constipation, Reports dysphagia, Denies dyspepsia, Denies diarrhea, Denies nausea, Denies odynophagia and Denies vomiting Denies urinary frequency, Reports nocturia, Denies dysuria, Denies urinary hesitancy and Denies urinary urgency Musc Details: heavy feeling and joint pain Denies back pain and Denies myalgias Skin/Breast Reports system reviewed and no additional complaints, except as documented Neuro Reports dizziness, Denies syncope, Denies frequent falls, Reports headache(s) (occasional migraine) and Denies weakness Psych Reports no additional complaints Endo Denies fatigue Physical exam (Primary Care) Vital Signs: Last Vital Signs Pulse 76 05/29/24 14:25 BP 112/78 05/29/24 14:25 Pulse Ox 94 05/29/24 14:25 Oxygen Delivery Method Room Air 05/29/24 14:25 BMI result Body Mass Index 25.8 Tobacco/Smoking Status: Tobacco use Status Tobacco use date assessed 05/29/24 05/29/24 14:50 Patient Tobacco Use Status Never used Tobacco 05/29/24 14:26 Tobacco use type Cigarette 05/29/24 14:26 e-Cigarette/Vaping Use Never Used 05/29/24 14:26 PHQ-9: PHQ-9 Score PHQ-9: Total score 2 05/29/24 15:45 Depression Screening Interpretation: Positive (Referral placed to outpatient psychiatry) Depression Screening Follow-up: Existing condition Thrive Assessment: Date of Thrive Assessment Date Thrive assessed 03/17/24 05/29/24 14:26 Currently or been in a relationship where the following occur: I choose not to answer Advance Care Planning discussion: Completed/Scanned Who was present: Patient Forms completed: MOLST Time spent: 1-15 minutes, not on file Actual minutes spent: 5 Const General: cooperative, healthy appearing, comfortable and no acute distress Orientation/consciousness: patient oriented x3 HENMT Head: Yes normocephalic Ears: hearing grossly normal bilaterally, external ears normal, TM's normal bilaterally and EAC's normal General nose exam: Normal external nose present Face and sinus: Yes normal facial exam and Yes sinuses nontender Mouth: Normal oral and palatal mucosa present and tongue normal Throat: Yes posterior oropharynx normal Eyes General: appearance normal, both eyes and all related structures Conjunctivae: conjunctivae normal Pupils: Equal, round and reactive pupils present EOM: EOMs intact bilaterally and No Nystagmus present Neck Neck: Yes normal visual inspection, Yes full ROM and Yes no lymphadenopathy Chest Chest palpation & inspection: normal inspection of the chest Resp Effort & Inspection: normal respiratory effort Auscultation: clear to auscultation bilaterally, no crackles, no rales, no rhonchi, no wheezes and breath sounds present Cardio Rate: regular rate Rhythm: regular rhythm Peripheral pulses: radial pulses present and dorsalis pedis present GI Inspection: Yes normal to inspection and No Abdominal wall edema Palpation (GI): Soft to palpation, not firm and nontender Auscultation: normal bowel sounds Rectal Exam - Female: deferred General: Yes no CVA tenderness Back/Spine/Pelvis Back: no CVA tenderness Skin General skin exam: no rashes or lesions noted Neuro General: patient oriented x3 Cranial nerves: Yes Equal, round and reactive pupils present, Yes Midline tongue present, Yes Ability to bilaterally elevate shoulders present and No Nystagmus present Gait exam (Neuro): Normal gait present Extrem General: Yes normal to inspection, Yes full ROM, No no pedal edema and No edema Psych Speech and movement: Normal speech and movement present Affect: normal affect Insight: Good insight present (Psych) Judgement: Good judgement present (Psych) Results AMB Urinalysis, Automated UA Leukoctes 0 Ruth/uL Last Edit by IJM Kirby on 05/29/24 15:46 UA Nitrite Negative Last Edit by Alanis Arango Cassius on 05/29/24 15:46 UA Urobilinogen 0.2 mg/dL Last Edit by Alanis Arango Cassius on 05/29/24 15:46 UA Protein 15 mg/dL Last Edit by Alanis Arango Cassius on 05/29/24 15:46 UA pH 8.5 Last Edit by Alanis Arango Cassius on 05/29/24 15:46 UA Blood 0 Ko/uL Last Edit by Alanis Arango Cassius on 05/29/24 15:46 UA Specific [place] 1.010 Last Edit by JIM Kirby on 05/29/24 15:46 UA Ketone Negative Last Edit by Alanis Arango Cassius on 05/29/24 15:46 UA Bilirubin 0 mg/dL Last Edit by JIM Kirby on 05/29/24 15:46 UA Glucose 0 mg/dL Last Edit by JIM Kirby on 05/29/24 15:46 Results Reviewed Results Reviewed: Laboratory Last Values Urine pH (Auto) 8.5 05/29/24 15:45 Specific [place] (Auto) 1.010 05/29/24 15:45 Urine Protein (Auto) 15 mg/dL 05/29/24 15:45 Glucose (UA)(Auto) 0 mg/dL 05/29/24 15:45 Urine Ketones (Auto) Negative 05/29/24 15:45 Urine Blood (Auto) 0 Ko/uL 05/29/24 15:45 Urine Nitrite (Auto) Negative 05/29/24 15:45 Urine Bilirubin (Auto) 0 mg/dL 05/29/24 15:45 Urine Urobilinogen (Auto) 0.2 mg/dL 05/29/24 15:45 Leukocyte Esterase (Auto) 0 Ruth/uL 05/29/24 15:45 Coding Level of Care Code Est Pt Level 3 (75910) Est Pt Prev Care 40-64y(65972) Diagnoses Annual physical exam Z00.00 Cognitive impairment R41.89 Anxiety F41.9 Insomnia G47.00 Blurred vision H53.8 Decreased hearing H91.90 Dysphagia R13.10 BPPV (benign paroxysmal positional vertigo) H81.10 Polyuria R35.89 Hypercholesterolemia E78.00 Additional Codes KATELYN-7 Assessment Billing - KATELYN-7 Assessment Tool: KATELYN-7 Assessment 85701 ([id number]) PHQ-9 - 41973 - PHQ-9 Billing: Yes ([id number]) Vital Signs *Quality* - Advance Care Planning discussion: Completed/Scanned ([id number]) Vital Signs *Quality* - Time spent: 1-15 minutes, not on file ([id number]) Assessment & Plan Assessment & Plan (1) Annual physical exam: Code(s): Z00.00 - Encounter for general adult medical examination without abnormal findings Category: Medical Plan: Patient is not up-to-date on all recommended routine screenings for her age. Referral was placed for gastroenterology for routine colonoscopy screening. Patient is declining Pap smear and mammogram at this time. Vaccines are up-to-date. Patient was provided with MOLST form and states she has a healthcare proxy form. (2) Cognitive impairment: Code(s): R41.89 - Other symptoms and signs involving cognitive functions and awareness Category: Medical Plan: Advised patient to follow up with her neurologist about this concern. (3) Anxiety: Code(s): F41.9 - Anxiety disorder, unspecified Category: Medical Plan: Patient having increased anxiety and occasional panic attacks advised outpatient psychiatry clinic. (4) Insomnia: Code(s): G47.00 - Insomnia, unspecified Category: Medical Plan: Referral placed for outpatient psych clinic. (5) Blurred vision: Code(s): H53.8 - Other visual disturbances Category: Medical Plan: Patient was seen by eye doctor and given prescription lenses. Strongly advised that patient does not drive if vision is blurry. (6) Decreased hearing: Code(s): H91.90 - Unspecified hearing loss, unspecified ear Category: Medical Plan: Referral placed for [facility] speech and hearing for audiometry. (7) Dysphagia: Code(s): R13.10 - Dysphagia, unspecified Category: Medical Plan: Patient reporting occasional choking episodes while eating we will order for barium swallow study for further evaluation. (8) BPPV (benign paroxysmal positional vertigo): Code(s): H81.10 - Benign paroxysmal vertigo, unspecified ear Category: Medical Plan: Patient has symptoms of room spinning while lying flat most consistent with BPPV. We will trial meclizine as needed for severe dizzy spells and referral placed to physical therapy for treatment of vertigo. (9) Polyuria: Code(s): R35.89 - Other polyuria Category: Medical Plan: Patient reporting increased urination which is been a chronic issue for her. Ordered for urinalysis for further evaluation. (10) Hypercholesterolemia: Code(s): E78.00 - Pure hypercholesterolemia, unspecified Category: Medical Plan: Avoid foods that are high in cholesterol such as red meat, fried foods, eggs and baked goods. Triglyceride goal of less than 150 and LDL goal of less than 130. Not currently on medical management. Medication declined at this time and we will repeat cholesterol in 3 months and discussed with patient medication should be considered at that time if still elevated. Plan This note was constructed using voice recognition software. While every effort has been made to ensure accuracy and worship pastor, still areas may have been included sometimes these areas may affect the content or meeting of the given symptoms. Total time spent caring for the patient today was 30 minutes. This includes time spent before the visit reviewing the chart, time spent during the visit, and time spent after the visit and documentation. Orders: Orders UA CC w/rflx Micro + Cult Today R35.89 - Other polyuria Lipid Panel Today Z00.00 - Encounter for general adult medical examination without abnormal findings PT Evaluation and Treatment Today H81.10 - Benign paroxysmal vertigo, unspecified ear [place] barium swallow Today R13.10 - Dysphagia, unspecified AMB Urinalysis Automated Today Z13.9 - Encounter for screening, unspecified Referrals Psychiatry Outpatient Consultation Service F41.9 - Anxiety disorder, unspecified Gastroenterology Referral Z12.11 - Encounter for screening for malignant neoplasm of colon Speech and Hearing Referral H91.90 - Unspecified hearing loss, unspecified ear Medications: New sennosides (senna) 8.6 mg PO BEDTIME PRN 30 caps 2RF constipation meclizine 12.5 mg PO TID PRN 30 tabs 2RF dizziness
== END 2024-05-29 15:45 | disposition home or self-care (01) ==
DX: Z00.00 Encounter for general adult medical examination without abnormal findings (principal); F41.9 Anxiety disorder, unspecified; G47.00 Insomnia, unspecified; H53.8 Other visual disturbances; H91.90 Unspecified hearing loss, unspecified ear; R13.10 Dysphagia, unspecified; H81.10 Benign paroxysmal vertigo, unspecified ear; R35.89 Other polyuria; E78.00 Pure hypercholesterolemia, unspecified; Z13.9 Encounter for screening, unspecified